=== PATIENT | female | born 1995 | race Two or more races ===

== ENCOUNTER 2024-09-08 02:09 | Inpatient (IN) | payer MEDICAID, SELFPAY ==
[2024-09-08] VITALS (191 sets, daily range): BP systolic 94–161; BP diastolic 55–118; PULSE 57–139; RESP 16–18; TEMP 36.7–37.1; O2SAT 88–100; BMI 33.9
[2024-09-08] MEDS: RINGERS LACTATED 1000 ML 1,000 ML 100 ML IV ×2 (02:35→14:19)
--- NOTE | 2024-09-08 02:48 | XR_ITS ---
Examination: age Limited Technique: Limited transabdominal sonographic images pelvis Indications: Labor evaluation, unknown presentation unknown weight Findings: Viable intrauterine gestation vertex presentation Cardiac motion 120 BPM Estimated weight 4017 g Estimated age 40 weeks 3 days Impression: Viable intrauterine gestation vertex presentation
[2024-09-08 03:04] LABS: Basophils % (Auto) 0 % (0-2.5); Eosinophils % (Auto) 1 % (0-10); Hematocrit 34.7 % (36.0-46.0); Hemoglobin 11.9 g/dL (12.0-16.0); Immature Granulocytes % (Auto) 0 % (0-0); Immature Granulocytes Auto 0.03 Thou/mm3 (0.00-0.00); Lymphocytes # (Auto) 1.9 Thou/mm3 (1.0-4.8); Lymphocytes % (Auto) 28 % (10-50); Mean Corpuscular HGB Conc 34.3 g/dl (31.0-37.0); Mean Corpuscular Hemoglobin 27.9 pg (25.0-35.0); Mean Corpuscular Volume 81 fL (80-100); Monocytes # (Auto) 0.5 Thou/mm3 (0.0-0.8); Monocytes % (Auto) 7 % (0-12); Neutrophils # (Auto) 4.3 Thou/mm3 (1.8-7.7); Neutrophils % (Auto) 63 % (37-80); Nucleated Red Blood Cell % 0 /100 WBC (0); Platelet Count 353 Thou/mm3 (140-440); RDW Standard Deviation 41.1 fL (36.4-46.3); Red Blood Count 4.27 Miln/mm3 (4.00-5.20); White Blood Count 6.8 Thou/mm3 (3.6-11.0)
[2024-09-08 03:48] LABS: Alanine Aminotransferase 36 U/L (10-49); Albumin, Serum 3.8 gm/dL (3.5-5.0); Albumin/Globulin Ratio 1.5 (1.2-2.2); Alkaline Phosphatase 141 U/L (46-116); Anion Gap 8 (7-16); Aspartate Amino Transferase 27 U/L (0-34); BUN/Creatinine Ratio 13 Ratio (12-20); Bilirubin,Total 0.5 mg/dL (0.3-1.2); Blood Urea Nitrogen 8 mg/dL (9-23); Calcium 8.9 mg/dL (8.3-10.6); Calcium (Corrected) 9.1 mg/dL (8.5-10.1); Carbon Dioxide 20.3 mMol/L (20.0-31.0); Chloride 111 mMol/L (98-107); Creatinine (Component) 0.6 mg/dL (0.6-1.3); Globulin 2.5 gm/dL (2.3-3.5); Glucose 86 mg/dL (74-106); Osmolality,Calculated 274 (275-295); Potassium 3.8 mMol/L (3.4-5.1); Sodium 139 mMol/L (136-145); Total Protein 6.3 gm/dL (5.7-8.2); eGFR > 60 See Note
[2024-09-08 04:32] LABS: Syphilis Nonreactive (Nonreactive)
--- NOTE | 2024-09-08 05:44 | PRELIM_ITS ---
Obstetric ultrasound. September 08, 2024 0353 hours Clinical history: EFW and presentation. Comparison: No prior study is available for comparison. Findings: There is a gravid uterus with a live fetus of mean gestational age 40 weeks and 3 days (by biometry). cardiac activity is present at a heart rate of 120 beats per minute. Amniotic fluid is adequate. Estimated weight is 4017 grams ?? 595 grams. Estimated due date by ultrasound is September 05, 2024. Impression: Gravid uterus with a single live fetus of mean gestational age 40 weeks 3 days. Report Electronically Signed By: Kemi Johnson 09/08/2024 5:43:17 AM [EST]
--- NOTE | 2024-09-08 06:44 | PD.LDHP ---
Documentation for date of: 09/08/24 OB Labor/Induct. HPI History of Present Illness Chief complaint: Induction of labor for gestational gestational diabetes at term : 2 Para: 1 Term pregnancies: 1 pregnancies: 0 Living children: 1 History of Abortions: Spontaneous and Elective: 0 History of Vaginal deliveries: 1 History of sections: No History of : No CHANDRA: 09/07/24 Gestational Age (weeks): 40 Gestational Age (days): 1 Indication for induction: post dates and medical complication (Gestational diabetes) History of present illness: Patient is a 29-year-old -0-0-1 at 40 1/7 weeks. All care uncomplicated with Dr Roche. Gestational diabetes, diet controlled. She is being induced for gestational diabetes at term. History of Present Adequate Care: Yes Ultrasounds: normal 1st trimester US and normal mid trimester US Obstetrical complications: gestational diabetes Medical complications: none Labs Maternal Blood Type: O Pos Labs: Positive: Rubella Titre and Negative: RPR, Hepatitis B, HIV, Chlamydia, Gonorrhea and Group Beta Strep Past Medical History Surgical History SURGICAL: Negative Section Meds Home Medications and Allergies Home Medications ?Medication ?Instructions ?Recorded ?Confirmed ?Type etonogestrel 68 mg subdermal ##0 08/29/16 History implant (Nexplanon) Allergies Allergy/AdvReac Type Severity Reaction Status Date / Time No Known Allergies Allergy Verified 06/02/19 22:24 OB Exam Physical Exam Vital signs: Temp Pulse Resp BP Pulse Ox 98.6 F 62 18 109/68 94 L 09/08/24 06:11 09/08/24 06:26 09/08/24 06:40 09/08/24 06:26 09/08/24 06:42 Routine Abdominal Exam Abdominal: Present soft (This) Detailed Labor and Delivery Exam Dilation (cm): 3 Effacement (%): 70 Cervix position: posterior station: -2 Consistency: medium Presentation: Vertex monitor accelerations: 15x15 monitor decelerations: None half-way variability: Moderate (11-25) Contraction frequency (min): Irregular OB Results Labs 09/08/24 01:35 09/08/24 01:35 Labs: Short CBC 09/08/24 Range/Units 01:35 WBC 6.8 (3.6-11.0) Thou/mm3 Hgb 11.9 L (12.0-16.0) g/dL Hct 34.7 L (36.0-46.0) % Plt Count 353 (140-440) Thou/mm3 BMP 09/08/24 01:35 Sodium 139 Potassium 3.8 Chloride 111 H Carbon Dioxide 20.3 BUN 8 L Creatinine 0.6 Glucose 86 Calcium 8.9 Liver Function 09/08/24 Range/Units 01:35 Total Bilirubin 0.5 (0.3-1.2) mg/dL AST 27 (0-34) U/L ALT 36 (10-49) U/L Alkaline Phosphatase 141 H (46-116) U/L Albumin 3.8 (3.5-5.0) gm/dL Impressions Impression: VTX on bedside ultrasound OB Assessment & Plan Assessment and Plan (1) Gestational diabetes mellitus (GDM): Status: Acute (2) Post-dates : Status: Acute Additional Plan Induction method: per misoprostol protocol Plan: anticipate NVD Additional Plan Comment: Patient declines epidural. (1) Gestational diabetes mellitus (GDM) Qualifiers: Gestational diabetes mellitus control: diet-controlled Trimester: third trimester Qualified Code(s): O24.410 - Gestational diabetes mellitus in , diet controlled (2) Post-dates Qualifiers: Post-term type: 40-42 weeks gestation Qualified Code(s): O48.0 - Post-term
[2024-09-08] MEDS: MISOPROSTOL 50 mCg TABLET PO (06:49)
--- NOTE | 2024-09-08 10:55 | CHAP ---
Gave encouragement and prayer to couple as they waited.
[2024-09-08] MEDS: OXYTOCIN in NS 30 units 30 UNIT/500 ML BAG IV (11:53)
[2024-09-08 14:16] LABS: Amphetamine/Metham Scrn,Ur OB Negative (Negative); Benzoylecgonine Screen, Ur OB Negative (Negative); Opiate Screen,Urine OB Negative (Negative); THC Screen,Urine OB Negative (Negative)
[2024-09-08] MEDS: fentaNYL CIT INJ 50 mCg/ML AMP 2ML 100 MCG IV ×2 (14:40→16:02)
[2024-09-08] MEDS: MINERAL OIL 30 ML UDC TOP (15:43)
[2024-09-08] MEDS: MISOPROSTOL 200 mCg TABLET 800 MCG PR (15:50)
[2024-09-08] MEDS: OXYTOCIN INJ 10 UNIT/ML VIAL IM (15:54)
[2024-09-08] MEDS: LIDOCAINE HCL 1% 20 ML VIAL INFL (16:01)
[2024-09-08] MEDS: TRANEXAMIC ACID 1,000 MG IVPB 1,000 MG/100 ML BAG 200 MG IV (16:05)
[2024-09-08] MEDS: BENZO/LANO/ALOE (Dermoplast) 60 GM CAN 1 SPRAY TOP (16:05)
[2024-09-08] MEDS: OXYTOCIN in NS 20 units 20 UNIT/1,000 ML BAG 125 UNIT IV (16:05)
--- NOTE | 2024-09-08 16:47 | PD.LDDELS ---
Data (Ramos) Data Hx Section: No : 2 Para: 1 Term: 1 : 0 : 0 Delivery Data (Ramos) Labor Data Stimulated/Augmented: Yes Induction: Yes Method: Cytotec (pitocin to follow) ROM Date: 09/08/24 ROM Time: 08:45 Rupture Type: SROM Amniotic Fluid: Clear Delivery Data EDC: 09/08/24 EDC calculated by:: LMP/early US confirmation Labor Onset Stage 1 Date: 09/08/24 Labor Onset Stage 1 Time: 15:38 Labor Onset Stage 2 Date: 09/08/24 Labor Onset Stage 2 Time: 15:43 Delivery Date: 09/08/24 Delivery Time: 15:48 Gestational age (weeks): 40 Gestational age (days): 1 Placenta Delivery Date: 09/08/24 Placenta Delivery Time: 15:52 Delivered by: Vikki Joyner Delivery nurse: Lianne Griffin Other staff at delivery: Nursery Nurse Other staff at delivery: Kalani Garcia Delivery Method Delivery: Vaginal Delivery Type: Spontaneous Presentation: Vertex Position: OA Anesthesia Type Primary Anesthesia: Local Delivery Room Medications Intrapartum Medications: Narcotics and Tocolytics Post Delivery Medications: Antibiotics, Narcotics and Cytotec Placenta Placenta Delivery: Spontaneous (trailing membranes broke, removed membranes manually, clots expressed. placenta inspected) Placenta Cultures Obtained: No Placenta Sent for Examination: No Cord Sample: Cord Blood Obtained Episiotomy Episiotomy: None Lacerations #1: Perineal: 2nd degree Perineal repair Sutures used for repair: 3.0 Vicryl (2.00 vicryl) EBL Estimated blood loss (ml): 400 Umbilical Cord Umbilical Vessels: 3 Nuchal Cord: None Body Cord: None Data (Ramos) Data Infant Gender: Male Weight Grams: 3885 1 Minute Total: 9 5 Minute Total: 9
[2024-09-08] MEDS: IBUPROFEN TAB 400 MG TABLET 800 MG PO (17:04)
[2024-09-08] MEDS: ceFAZolin/D5W 2 GM IV 2 GM/100 ML BAG IV ×2 (17:28→23:32)
[2024-09-09 00:20] LABS: Basophils % (Auto) 0 % (0-2.5); Eosinophils % (Auto) 0 % (0-10); Hematocrit 30.3 % (36.0-46.0); Hemoglobin 10.3 g/dL (12.0-16.0); Immature Granulocytes % (Auto) 1 % (0-0); Immature Granulocytes Auto 0.06 Thou/mm3 (0.00-0.00); Lymphocytes # (Auto) 1.8 Thou/mm3 (1.0-4.8); Lymphocytes % (Auto) 18 % (10-50); Mean Corpuscular Hemoglobin 27.8 pg (25.0-35.0); Mean Corpuscular Volume 82 fL (80-100); Monocytes # (Auto) 0.6 Thou/mm3 (0.0-0.8); Monocytes % (Auto) 6 % (0-12); Neutrophils # (Auto) 7.6 Thou/mm3 (1.8-7.7); Neutrophils % (Auto) 76 % (37-80); Nucleated Red Blood Cell % 0 /100 WBC (0); Platelet Count 261 Thou/mm3 (140-440); RDW Standard Deviation 41.3 fL (36.4-46.3); White Blood Count 10.1 Thou/mm3 (3.6-11.0)
[2024-09-09] MEDS: IBUPROFEN TAB 400 MG TABLET 800 MG PO (03:27)
[2024-09-09 04:00] VITALS: BP 110/77; PULSE 78; RESP 16; TEMP 36.6
[2024-09-09] MEDS: ceFAZolin/D5W 2 GM IV 2 GM/100 ML BAG IV ×2 (05:29→11:43)
--- NOTE | 2024-09-09 08:16 | ESPR_ITS ---
Subjective Subjective Interval history: No complaints of pain. No dizziness. Bonding and breast-feeding Exam Vital Signs Temp Pulse Resp BP Pulse Ox 97.9 F 78 16 110/77 95 09/09/24 04:00 09/09/24 04:00 09/09/24 04:00 09/09/24 04:00 09/08/24 15:47 Narrative Exam Vital signs stable afebrile. Pressure soft. Fundus firm below the umbilicus. Perineum intact no swelling. Small lochia. Uterus well involuted. Negative Homans' sign. 2+ DTRs Objective Labs 09/09/24 00:06 09/08/24 01:35 Labs: Laboratory Results - last 24 hr 09/08/24 09/09/24 13:40 00:06 WBC 10.1 D RBC 3.70 L Hgb 10.3 L Hct 30.3 L MCV 82 MCH 27.8 MCHC 34.0 RDW Std Deviation 41.3 Plt Count 261 D Neut % (Auto) 76 Lymph % (Auto) 18 Robertson % (Auto) 6 Eos % (Auto) 0 Baso % (Auto) 0 Neut # (Auto) 7.6 Lymph # (Auto) 1.8 Robertson # (Auto) 0.6 Eos # (Auto) 0.0 Baso # (Auto) 0.0 Immature Gran # (Auto) 0.06 H Absolute Nucleated RBC 0.00 Immature Gran % 1 H Nucleated RBC % 0 Urine Opiates Screen Negative U Amphetamin/Meth Scrn Negative U Cocaine Metab Screen Negative U Marijuana (THC) Screen Negative Assessment & Plan Problem List (1) Gestational diabetes mellitus (GDM): Status: Acute (2) Post-dates : Status: Acute Assessment and plan: 24 hr Plan Comment Plan Comment: Discharge home with baby. Continue vitamins and iron. Tylenol or ibuprofen for pain. Danger signs. Return in 3 weeks visit. I discussed ER precautions and parameters. And discussed signs symptoms of infection. Increase fluids and rest. Time Spent With Patient Time: Total time spent is greater than 50% in coordination of care (as documented) at patient's floor/unit and/or counseling patient:
--- NOTE | 2024-09-09 08:19 | PD.LDDS ---
DS: Providers Provider Date of admission: 09/08/24 02:09 Primary care physician: Abdulkadir Keller MD Admitting Provider: Keli Galo MD ([facility]) Attending Provider on Admission: Vikki Joyner CNM Consults: 09/08/24 17:07 Referral Routine Comment: Attending Provider on DC: Vikki Joyner CNM Discharging Provider: Vikki Joyner CNM DS: Diagnosis Problem List Completed Was Problem List Reviewed/Reconciled?: Yes Summary/Hosp Course Brief History: Patient is a 29-year-old -0-0-1 at 40 1/7 weeks. All care uncomplicated with Dr Roche. Gestational diabetes, diet controlled. She is being induced for gestational diabetes at term. Peripartum Data Delivery Method: Normal Vaginal Delivery Episiotomy Description: None Laceration Description: yes (2nd) complications: none Time Spent with Patient Time attestation: Total time spent providing and/or coordinating discharge services: Exam Vital Signs Temp Pulse Resp BP Pulse Ox 97.9 F 78 16 110/77 95 09/09/24 04:00 09/09/24 04:00 09/09/24 04:00 09/09/24 04:00 09/08/24 15:47 Discharge Plan Plan Patient Disposition: HOME (Self Care) Patient condition on transfer: Stable Prescriptions/Referrals Prescriptions/Med Rec: No Action acetaminophen 650 mg tablet extended release 650 mg PO Q8H PRN (Reason: fever or pain) Qty: 30 0RF Rx Instructions: swallow whole; do not crush, chew, break, dissolve, cut, or open cyclobenzaprine 5 mg tablet 5 mg PO TID PRN (Reason: muscle spasm) Qty: 10 0RF meloxicam [Mobic] 15 mg tablet 15 mg PO QDAY Qty: 10 0RF etonogestrel [Nexplanon] 68 MG implant Qty: 0 PNV cmb#[id number]-ferrous fumarate-FA [] 28 mg iron- 800 mcg tablet 1 tab PO QDAY Patient Comments: TAKE 1 TABLET BY MOUTH EVERY DAY aspirin 81 mg tablet,delayed release (DR/EC) 81 mg PO QDAY Patient Comments: TAKE 1 TABLET BY MOUTH EVERY DAY Referrals: Abdulkadir Keller MD [Primary Care Provider] - Patient/Caregiver Discharge Instructions Meds to Beds: No Discharge Activity: resume usual activities Print Language: Swedish Activity Restrictions/Additional Instructions: Discharge home with baby. Continue vitamins and iron. Tylenol or ibuprofen for pain. Danger signs. Return in 3 weeks visit. Discussed ER precautions and parameters. Discussed signs symptoms of infection. Increase fluids. Discussed comfort measures for second-degree laceration. Increase fluids and roughage. Comfort measures for hemorrhoid. Stand Alone Forms: Lucie Award Info., Patient Portal Info Letter Discharge Order Discharge Orders: Discharge (Routine); Ordered 09/09/24 Ordered By: Vikki Joyner Planned Discharge Date 09/09/24
[2024-09-09 08:20] VITALS: BP 113/72; PULSE 75; RESP 16; TEMP 36.9; O2SAT 95
[2024-09-09] MEDS: DOCUSATE SOD 100 MG CAPSULE PO (08:24)
[2024-09-09 11:25] VITALS: BP 97/69; PULSE 65; RESP 15; TEMP 36.6; O2SAT 95
--- NOTE | 2024-09-09 15:43 | PC.SS ---
NETWORK SUPPORT ADMINISTRATOR conducted bedside contact with the patient to address nursing referral indicating patient was late to care at 19 weeks.? NETWORK SUPPORT ADMINISTRATOR introduced self and role.? At bedside with patient was SHMUEL, Hector Bonilla.? Patient gave permission for FOB to be present during discussion.? Patient confirmed LTC due to inability to obtain appointment at Dr. Roche?s office.? Patient?s initial appointment conducted at [facility].? , Rajiv; is the patient?s second child.? Other child is 10 years old.? Infant delivered naturally.? Patient plans on bottle feeding.? Patient is employed at [employer].? Patient is aligned with [place].? Not receiving SNAP or TANF.? Patient denies history of alcohol/drug use.? Patient denies episodes of domestic violence.? Patient denies history of CWS intervention.? Patient denies history of mental health.? Patient has access to appropriate supplies and equipment.? FOB will provide transportation upon discharge.? Patient describes possessing support system consisting of spouse and extended family.? NETWORK SUPPORT ADMINISTRATOR provided community resources to include [employer] and [employer].? No further intervention required at this time, social services manager will be available to address any further concerns.? NETWORK SUPPORT ADMINISTRATOR updated bedside nurse.?
[2024-09-09 15:50] VITALS: BP 102/63; PULSE 57; RESP 16; TEMP 36.7; O2SAT 96
== END 2024-09-09 17:29 | disposition home or self-care (01) | DRG 560 ==
LOC: S4SX 16:44 → S4NX 18:07
PROVIDERS: Obstetrics & Gynecology; Admitting Provider Obstetrics & Gynecology; PCP Family Medicine; Visit Provider Advanced Practice Midwife
DX: O24.420 Gestational diabetes mellitus in childbirth, diet controlled (principal); O48.0 Post-term pregnancy; Z37.0 Single live birth; Z3A.40 40 weeks gestation of pregnancy; O70.1 Second degree perineal laceration during delivery
CPT/HCPCS: 36415; 59409; 76805; 80053; 80307; 85025; 86780; 86850; 86900; 86901; 94762; J0689; J2590; J3010; J3490; J7120; S0191; A9270

== ENCOUNTER 2024-09-29 15:51 | Outpatient (AMBR) | payer MEDICAID, SELFPAY ==
--- NOTE | 2024-09-29 16:17 | LACNOTE_ITS ---
Assessment LAC Assessment Breast Feeding Assessment Date of : 09/08/24 Current Age of baby: 3 (weeks) Weight: 4036.972 g Current weight of baby: 4672.001 g Color of Stools: yellow Breast Feeding Ability: Fair [place] Complications Comment: mom states that baby is very gassy, has loud stomach noises. states baby slips off the nipple and causes pain. baby appears to have a lip tie as well as a posterior tongue tie. Activity Level: Rooting [place] Muscle Tone: Tense Suck Quality: Areolar Compression Effective Suck: Yes Swallow: Audible and Occasional [place] Jaw: Receding Lip Seal: Tight Lips Feeding Posistion: Cross Cradle Additional Latch or Posistion Assistance Needed: Minimal Breast Feeding Comment: showed mom a cross cradle hold, she is using cradle hold which did not allow baby to get the deepest latch. mom also has very large nipple and so baby latches just to the nipple. showed mom how to achieve a deeper latch. baby tolerated well but after abou 10 minutes on the breast he did slide off and started to hurt mom LAC Intervention Interventions Tools: Pump Other Tools: explained that if baby was not emptying the breast completely she would need to pump after the feeds in order to preserve her milk supply. mom understood Engorgement Techniques Discussed: Breast Massage While Intervention Comments: explained to do compressions while baby on to help move milk making him do less work. Discharge Follow Up Appointment Date and Time: will return after referral consult Other Referral Made: Yes Feeding Preference at Discharge: Exclusive Out Patient [employer] Car Checker: Dentist or oral surgeon LAC Latch Score LATCH Score Latch: Repeat Attempt to Hold Nipple Audible Swallow: Spontaneous, Intermittent, Frequent Nipple Type: Everted After Stimulation Comfort: Red, Small Blisters, Bruises Hold: Minimal Assistance Needed Total Score: 7 LAC Oral Assessment [place] Oral Assessment Prenulum Level: Posterior Lip: Tight Upper Lip Palate: High Dental Referral made: Yes OP DC Assessment Discharge Follow Up Appointment Date and Time: will return after referral consult Other Referral Made: Yes Out Patient [employer] Car Checker: Dentist or oral surgeon Visit Complete?: Yes
== END 2024-10-17 23:59 | disposition home or self-care (01) ==
LOC: HODLAC 15:51
DX: Z39.1 Encounter for care and examination of lactating mother (principal)